=== PATIENT | female | born 1960 | race Two or more races ===

== ENCOUNTER 2018-03-05 11:16 | Outpatient (CLI) | payer OTHER ==
[~2018-03-05 11:16] MED LIST: DURICEF 500 MG CAPSULE PO; TRAM1TAB98 PO
== END 2018-03-05 11:44 | disposition home or self-care (01) ==
LOC: SONOGRAMA 11:16
DX: R07.89 Other chest pain (principal)

== ENCOUNTER 2018-04-15 12:37 | Outpatient (CLI) | payer OTHER | END 2018-04-15 15:40 | disposition home or self-care (01) | LOC: RAD 12:37 | DX: M12.88 Other specific arthropathies, not elsewhere classified, other specified site (principal); M17.12 Unilateral primary osteoarthritis, left knee ==

== ENCOUNTER 2018-04-28 12:05 | Emergency (ER) | payer OTHER ==
[~2018-04-28] VITALS: Ht 172.7 cm; Wt 70.3 kg
[2018-04-28] MEDS ORDERED: CLARITIN-D 241 EACH PO (12:27)
[2018-04-28] MEDS ORDERED: SYNTHROID100 MCG PO (12:27)
== END 2018-04-28 14:48 | disposition home or self-care (01) ==
LOC: ER 12:05
DX: S05.12XA Contusion of eyeball and orbital tissues, left eye, initial encounter (principal); S00.83XA Contusion of other part of head, initial encounter; W18.39XA Other fall on same level, initial encounter; Y93.89 Activity, other specified; Y92.098 Other place in other non-institutional residence as the place of occurrence of the external cause; Y99.8 Other external cause status

== ENCOUNTER 2018-06-16 09:24 | Outpatient (CLI) | payer OTHER ==
[~2018-06-16 09:24] MED LIST changes: +CLARITIN-D 241 EACH PO; +SYNTHROID100 MCG PO
== END 2018-06-16 09:35 | disposition home or self-care (01) ==
LOC: MRI 09:24
DX: G50.0 Trigeminal neuralgia (principal)
CPT/HCPCS: 70553; A9579

== ENCOUNTER 2019-08-12 14:34 | Outpatient (CLI) | payer OTHER | END 2019-08-12 14:47 | disposition home or self-care (01) | LOC: MRI 14:34 | DX: G51.1 Geniculate ganglionitis (principal); G50.0 Trigeminal neuralgia | CPT/HCPCS: 70551 ==

== ENCOUNTER 2020-02-02 09:19 | Outpatient (CLI) | payer OTHER | END 2020-02-02 09:24 | disposition home or self-care (01) | LOC: SONOGRAMA 09:19 | PROVIDERS: ATTEND Internal Medicine Cardiovascular Disease | DX: M19.90 Unspecified osteoarthritis, unspecified site (principal) ==

== ENCOUNTER 2020-09-19 11:05 | Outpatient (CLI) | payer OTHER | END 2020-09-19 15:52 | disposition home or self-care (01) | LOC: OFIC 805 11:05 | PROVIDERS: ATTEND Otolaryngology | DX: G44.89 Other headache syndrome (principal); R04.0 Epistaxis ==

== ENCOUNTER 2020-09-19 13:47 | Outpatient (CLI) | payer OTHER | END 2020-09-19 15:17 | disposition home or self-care (01) | LOC: RAD 13:47 | PROVIDERS: ATTEND Internal Medicine Cardiovascular Disease | DX: M12.88 Other specific arthropathies, not elsewhere classified, other specified site (principal) ==

== ENCOUNTER 2022-11-05 07:37 | Outpatient (CLI) | payer OTHER | END 2022-11-05 07:43 | disposition home or self-care (01) | LOC: TOM 07:37 | PROVIDERS: ATTEND Internal Medicine Cardiovascular Disease | DX: R19.5 Other fecal abnormalities (principal); K66.0 Peritoneal adhesions (postprocedural) (postinfection); Z12.11 Encounter for screening for malignant neoplasm of colon ==

== ENCOUNTER 2022-12-20 12:53 | Outpatient (CLI) | payer OTHER | END 2022-12-20 12:56 | disposition home or self-care (01) | LOC: RAD 12:53 | PROVIDERS: ATTEND Internal Medicine Cardiovascular Disease | DX: R51.9 Headache, unspecified (principal) ==

== ENCOUNTER 2024-05-22 12:35 | Outpatient (CLI) | payer OTHER | END 2024-05-22 12:43 | disposition home or self-care (01) | LOC: MRI 12:35 | PROVIDERS: ATTEND Psychiatry & Neurology Clinical Neurophysiology | DX: S06.5X0A Traumatic subdural hemorrhage without loss of consciousness, initial encounter (principal) | CPT/HCPCS: 70551 ==

== ENCOUNTER 2024-12-07 08:18 | Day surgery (SDC) | payer OTHER ==
[2024-12-01 09:59] VITALS: BP 132/84
[2024-12-01 10:49] LABS: BASO % 0.5 % (0.1-1.2); EOS # 0.05 (0.04-0.54); EOS % 1.1 % (0.7-7.0); HEMATOCRIT 35.1 % (34.1-44.9); HEMOGLOBIN 11.5 g/dL (11.2-15.7); LYMPH # 1.22 (1.18-3.74); LYMPH % 27.9 % (19.3-53.1); MONO # 0.38 (0.24-0.82); MONO % 8.7 % (4.7-12.5); NEUT % 61.6 % (34.0-71.1); PLATELET COUNT 300 K/uL (163-369); RED BLOOD COUNT 3.83 M/uL (3.93-5.22); RED CELL DISTRIBUTION WIDTH 12.3 % (11.6-14.4)
[2024-12-01 11:12] LABS: PH,URINE 5.5 (5.0-8.0); URINE APPEARANCE Cloudy; URINE BILIRRUBIN Negative (NEGATIVE); URINE BLOOD Negative; URINE COLOR Yellow; URINE GLUCOSE Negative (NEGATIVE); URINE KETONE Trace (NEGATIVE); URINE LEUKOCYTE Negative; URINE NITRATE Negative; URINE PROTEIN Trace (NEGATIVE)
[2024-12-01 11:14] LABS: INR 1.02; PARTIAL THROMBOPLASTIN TIME 27.9 SECONDS (22.0-34.0); PROTHROMBIN TIME 11.1 SECONDS (9.0-11.5)
[2024-12-01 11:16] LABS: URINE BACTERIA 15.9 uL (0.0-1933); URINE EPITHELIAL CELLS 12.6 uL (0.0-38.8); URINE RBC 10.3 uL (0.0-20.8)
[2024-12-01 11:24] LABS: URINE CAST 1.17 uL (0.0-1.40)
[2024-12-01 11:57] LABS: ALBUMIN 3.6 gm/dL (3.4-5.0); BILIRUBIN TOTAL 0.74 mg/dL (0.3-1.2); CALCIUM 8.8 mg/dL (8.5-10.1); CREATININE SERUM 0.55 mg/dL (0.55-1.02); GLOBULINA 3.2 G/DL (2.4-3.5); POTASSIUM 3.85 mEq/L (3.5-5.1); TOTAL PROTEIN 6.8 gm/dL (6.4-8.2)
[~2024-12-07] VITALS: Ht 172.7 cm; Wt 63.5 kg
[~2024-12-07 08:18] MED LIST changes: +BACLOFEN20 MG; +CATAFLAM; +FIORICET; +SINGULAIR10 MG PO
[2024-12-07] MEDS ORDERED: CEFAZOLIN SODIUM 1,000 MG VIAL ONE (10:58)
[2024-12-07] MEDS ORDERED: EPINEPHRINE HCL/PF 1 MG/ML AMPUL ONE (11:54)
[2024-12-07] MEDS ORDERED: METHYLPREDNISOLONE ACETATE 80 MG/ML VIAL ONE (11:54)
[2024-12-07] MEDS ORDERED: SUGAMMADEX SODIUM 200 MG/2 ML VIAL IV ONE (12:57)
[2024-12-07] MEDS ORDERED: KETOROLAC TROMETHAMINE 60 MG VIAL IM ONE (13:43)
[2024-12-07] MEDS ORDERED: MORPHINE SULFATE 4 MG/ML VIAL IV ONE ×3 (14:15→15:55)
[2024-12-07] MEDS ORDERED: DUI500 PO (14:25)
[2024-12-07] MEDS ORDERED: TRAM1TAB98 PO (14:27)
[2024-12-07] MEDS ORDERED: PROMETHAZINE HCL 25 MG/ML AMPUL IM PRN (14:30)
[2024-12-07] MEDS ORDERED: MEPERIDINE HCL/PF 25 MG/ML VIAL IM PRN (14:30)
[2024-12-07] MEDS ORDERED: CEFADROXIL 500 MG CAPSULE PO SCH (21:00)
== END 2024-12-07 18:30 | disposition home or self-care (01) ==
LOC: CIR.AMB 08:18
PROVIDERS: ATTEND Orthopaedic Surgery Sports Medicine
DX: M75.121 Complete rotator cuff tear or rupture of right shoulder, not specified as traumatic (principal); M24.111 Other articular cartilage disorders, right shoulder; M65.811 Other synovitis and tenosynovitis, right shoulder